=== PATIENT | female | born 1945 | race Caucasian/White ===

== ENCOUNTER → 2017-04-14 | Outpatient (CLI) | payer MEDICARE, OTHER | LOC: KOH-I 14:08 | DX: M25.572 Pain in left ankle and joints of left foot (principal) | CPT/HCPCS: 73610 ==

== ENCOUNTER → 2021-09-29 | Outpatient (CLI) | payer MEDICARE ==
[~2021-09-29] MED LIST: BUMETANIDE2 MG PO; ELIQUIS5 MG PO; HYDRALAZINE HC100 MG PO; K-DUR TAB 20 M20 MEQ PO; LEVEMIR100 UNIT/1 SC; METOLAZONE2.5 MG PO; NOVOLOG MI100 UNIT/1 SC; PANTOPRAZOLE SO40 MG PO; PREDNISONE 20 M20 MG PO; TOPROL XL 100100 MG PO
== END ==
LOC: KOH-I 15:21
DX: M54.6 Pain in thoracic spine (principal)
CPT/HCPCS: 72070; 72100

== ENCOUNTER → 2022-04-10 | Outpatient (CLI) | payer OTHER, MEDICARE | LOC: KOH-I 14:26 | DX: M25.562 Pain in left knee (principal) | CPT/HCPCS: 73562 ==